=== PATIENT | male | born 1985 | race Caucasian/White ===

== ENCOUNTER 2017-03-28 11:28 | Emergency (ER) | payer OTHER ==
[~2017-03-28] VITALS: Ht 177.8 cm; Wt 64.7 kg
[~2017-03-28 11:28] MED LIST: AUGMENTIN875 MG PO; BACTRIM,SEPT1 TABLET PO; KEFLEX500 MG PO; LIDOCAINE20 MG/1 M5 MM; MOTRIN800 MG PO; NAPROSYN500 MG PO; NOHOMEMEDS; NORCO 5/3251 TABLET PO; NORCO 7.5/321 TABLET PO; PEN-VEE K,VEET500 MG PO
[2017-03-28] MEDS ORDERED: AMOXICILLIN875 MG PO (13:22)
[2017-03-28] MEDS ORDERED: MOTRIN600 MG PO (13:22)
[2017-03-28] MEDS ORDERED: TRAMADOL HCL50 MG PO (13:22)
[2017-03-28 13:32] VITALS: BP 118/70
== END 2017-03-28 13:29 | disposition home or self-care (01) ==
LOC: EME 11:28 → RME 13:24
DX: K08.89 Other specified disorders of teeth and supporting structures (principal); F17.200 Nicotine dependence, unspecified, uncomplicated
CPT/HCPCS: 99281; 99282